=== PATIENT | male | born 1960 | race Caucasian/White ===

== ENCOUNTER → 2016-10-10 | Outpatient (CLI) | payer OTHER ==
--- NOTE | ~2016-10-10 | CST ---
Cardiac Perfusion Imaging Demographics Patient Name TEMO HINTON Gender Male MARYELLEN Patient Number [id number] Race Visit Number [id number] Ethnicity [employer] ID Room Number Accession Number [id number] Height 70 inches Date of 1960 Weight 165 pounds Age 56 year(s) BSA 1.92 m Referring Physician Gus Kenyon BMI 23.67 kg/m Interpreting Nile Spencer MD Date of study 10/10/2016 Physician [facility] Supervising /JAX MATT Technologist [employer] Ordering Physician Gus Kenyon Stress Kerry Wynne unit technician Stress ECG Reading Gus Kenyon Nurse Lawrence France Physician Sybil Hatfield The procedure was explained in detail to the patient. Risks, complications and alternative treatments were reviewed. Written consent was obtained. Medications Reviewed with Patient prior to Procedure. Procedure Procedure Type: Nuclear Stress Test:Exercise Procedure Start time: 10/10/2016 07:30 Indications: Family history of coronary artery disease, Tobacco use-prior, Chest pain and abnormal rest ECG. Risk Factors The patient risk factors include:former tobacco use and family history of premature CAD. Conclusions Summary Perfusion Images: The overall quality of the study is good. Left ventricular cavity is noted to be normal on the stress and rest studies. There is no evidence of abnormal lung activity. The right ventricle is not visualized and cannot be assessed. Stress SPECT images demonstrate homogenous tracer distribution throughout the myocardium. Rest SPECT images demonstrate homogenous tracer distribution throughout the myocardium. Gated SPECT imaging reveals normal myocardial thickening and wall motion. The left ventricular ejection fraction was calculated to be 68%. Impression ECG portion of stress test is clinically negative for ischemia by diagnostic criteria. Myocardial perfusion imaging is normal. Overall left ventricular systolic function was normal without regional wall motion abnormalities. There are no previous studies for comparison. Stress Protocols Resting ECG Normal sinus rhythm. Resting HR:68 bpm Resting BP:128/78 mmHg Pre-stress physical exam: Normal Stress Protocol:Exercise - Bent[place] Peak HR:150 bpm HR response: Appropriate Peak BP:192/102 mmHg BP response: Appropriate Predicted HR: 162 bpm HR/BP product:31983 % of predicted HR: 93 Max exercise: 10 METS Reason for termination:Fatigue Exercise effort:Good ECG Findings No ECG changes suggestive of ischemia. Upsloaping ST segments lateral leads. Within normal limits. Arrhythmias No rhythm abnormality. Symptoms Fatigue. Complications Procedure complication: None. Stress Interpretation No cardiovascular symptoms with exercise. Normal resting BP with appropriate rise in BP with exercise. Negative stress ECG for ischemia. Normal heart rate and blood pressure response to stress. No atrial or ventricular arrhythmias. The sestamibi was injected intravenously upon reaching the maximum predicted heart rate. IMPRESSION: The electrocardiographic portion of the stress test is negative for ischemia. Imaging Results Summed scores - Summed stress score: 0 - Summed rest score: 0 - Summed difference score: 0 Stress ejection Ejection fraction:68 % EDV :94 ml ESV :30 ml Stroke volume :64 ml LV mass :129 gr Imaging Protocols Rest Stress Isotope:Tc99m Myoview IV Isotope: Tc99m Myoview IV Isotope dose:10.4 mCi Isotope dose:31.8 mCi Date:10/10/2016 06:30 Date:10/10/2016 07:29 Technique: SPECT Technique: Gated Supine SPECT Supine Scan Time:30 minutes post injection Scan Time:15-30 minutes post injection Medical History Admission Data Admission date: 10/10/2016 Admission Time: 05:59 Hospital Status: Outpatient. Signatures
== END | disposition home or self-care (01) ==
LOC: CARD 05:59
DX: R07.9 Chest pain, unspecified (principal); R94.31 Abnormal electrocardiogram [ECG] [EKG]; Z87.891 Personal history of nicotine dependence